=== PATIENT | female | born 1985 | race Hispanic/Latino ===

== ENCOUNTER 2017-12-19 23:02 | Emergency (ER) | payer MEDICARE, MEDICAID ==
[2017-12-19 23:10] VITALS: BMI 18.6
--- NOTE | 2017-12-19 23:13 | ED PDOC ---
Arrival/HPI - General Historian: Patient, EMS - General Time Seen by Provider: 12/19/17 23:09 - History of Present Illness Narrative History of Present Illness (Text): 12/19/17 23:13 32 y/o female, no significant pmh, psychiatric history including schizophrenia/ borderline personality disorder (father has multiple discharge papers from [facility]) , biba c/o agitation/refusing to take her medication/running on the street tonight with no clothings on except a blanket wrapping around her which the dad call the ambulance. Father is here at the ER saying that the patient is flight risk, refused to take medication, no head or neck trauma. Pt. is here at the ER which she declines everything. Pt. has no chest pain or shortness of breath , no palpitation, no rash, no other medical or psychological complaints. (Ambrosio Marks) Past Medical History - Provider Review Nursing Documentation Reviewed: Yes Family/Social History - Physician Review Nursing Documentation Reviewed: Yes Family/Social History: Unknown Family HX Allergies/Home Meds Allergies/Adverse Reactions: Allergies No Known Allergies Allergy (Verified 12/19/17 23:09) Home Medications: Home Meds Medication Instructions Recorded Confirmed Unobtainable 12/19/17 12/19/17 Review of Systems - Review of Systems Constitutional: absent: Fatigue, Fevers Eyes: absent: Vision Changes ENT: absent: Hearing Changes Respiratory: absent: SOB, Cough Gastrointestinal: absent: Abdominal Pain Skin: absent: Rash, Pruritis Neurological: absent: Headache, Dizziness Psychiatric: absent: Anxiety, Depression, Suicidal Ideation Physical Exam Vital Signs Reviewed: Yes Temperature: Afebrile Blood Pressure: Normal Pulse: Tachycardic Respiratory Rate: Normal Appearance: Positive for: Well-Appearing, Non-Toxic, Comfortable Pain Distress: None - Systems Exam Head: Present: Atraumatic, Normocephalic Pupils: Present: PERRL Extroacular Muscles: Present: EOMI Conjunctiva: Present: Normal Mouth: Present: Moist Mucous Membranes Neck: Present: Normal Range of Motion Respiratory/Chest: Present: Clear to Auscultation, Good Air Exchange. No: Respiratory Distress, Accessory Muscle Use Cardiovascular: Present: Regular Rate and Rhythm, Normal S1, S2. No: Murmurs Abdomen: Present: Normal Bowel Sounds. No: Tenderness, Distention, Peritoneal Signs Back: Present: Normal Inspection Upper Extremity: Present: Normal Inspection. No: Cyanosis, Edema Lower Extremity: Present: Normal Inspection. No: Edema Neurological: Present: GCS=15, Speech Normal, Motor Func Grossly Intact, Gait Normal Skin: Present: Warm, Dry, Normal Color. No: Rashes Psychiatric: Present: Alert, Normal Insight, Normal Concentration Vital Signs Temp Pulse Resp BP Pulse Ox 12/20/17 14:31 65 18 116/78 100 12/20/17 12:24 63 18 114/71 100 12/20/17 10:16 65 18 118/69 100 12/20/17 07:17 67 16 116/68 100 12/20/17 05:02 98 H 18 120/82 100 12/19/17 23:02 97.6 F 106 H 18 120/72 100 Medical Decision Making - Lab Interpretations I have reviewed the lab results: Yes - RAD Interpretation Handstitching Machine Collar Feller: Radiologist - EKG Interpretation Interpreted by ED Physician: Yes Type: 12 lead EKG Comparison: No previous EKG avail. ED Course and Treatment: 12/20/17 05:50 Accepted to [facility] for admission. Awaiting bed. Will sign out to ED day team. (Martin Miller) 12/19/17 23:42 -labs/ua/uds -ekg -cxr -PES paged -Observe and reassess 12/20/17 01:21 -EKG: SR @ 82 BPM, no acute ST elevation or depression, no T wave inversion, no previous ekg available for comparison. -Chest xray show no active. -labs show no acute findings -UA show no UTI -UDS show no acute findings -Pt. is medically clear and stable for the psychiatric evaluation at this time. -PES paged and pending for the consult. 12/20/17 02:04 -Case sign off and endorsed to DR. Martin Miller, discussed about the case/labs/ radiology result and he will follow up with the PES consult. (Ambrosio Marks) - Lab Interpretations Lab Results: 12/19/17 23:40 12/19/17 23:40 Lab Results 12/20/17 00:30: Urine Color Yellow, Urine Appearance Clear, Urine pH 7.0, Ur Specific [place] 1.015, Urine Protein Negative, Urine Glucose (UA) Negative, Urine Ketones Negative, Urine Blood Negative, Urine Nitrate Negative, Urine Bilirubin Negative, Urine Urobilinogen 0.2, Ur Leukocyte Esterase Negative 12/19/17 23:50: Urine Opiates Screen Negative, Urine Methadone Screen Negative, Ur Barbiturates Screen Negative, Ur Phencyclidine Scrn Negative, Ur Amphetamines Screen Negative, U Benzodiazepines Scrn Negative, U Oth Cocaine Metabols Negative, U Cannabinoids Screen Negative 12/19/17 23:40: WBC 10.0, RBC 4.43, Hgb 13.4, Hct 38.2, MCV 86.2, MCH 30.2, MCHC 35.1, RDW 12.6, Plt Count 254, MPV 10.3, Gran % 62.6, Lymph % (Auto) 30.0, [place] % (Auto) 6.4 H, Eos % (Auto) 0.8 L, Baso % (Auto) 0.2, Gran # 6.28, Lymph # (Auto) 3.0, [place] # (Auto) 0.6, Eos # (Auto) 0.1, Baso # (Auto) 0.02 12/19/17 23:40: Salicylates < 1 L, Acetaminophen < 10.0 L 12/19/17 23:40: Beta HCG, Quant < 2.39, Alcohol, Quantitative < 10 12/19/17 23:40: Sodium 139, Potassium 3.8, Chloride 103, Carbon Dioxide 27, Anion Gap 12, BUN 10, Creatinine 0.6 L, Est GFR ( Amer) > 60, Est GFR ( Non-Af Amer) > 60, Random Glucose 114 H, Calcium 9.6, Total Bilirubin 0.3, AST 22, ALT 29, Alkaline Phosphatase 43, Total Protein 7.3, Albumin 4.2, Globulin 3.1, Albumin/Globulin Ratio 1.3 - RAD Interpretation Radiology Orders: 12/19/17 23:27 CHEST PORTABLE [RAD] Stat 12/19/17 23:27 CHEST PORTABLE [RAD] Stat no active disease (Ambrosio Marks) - EKG Interpretation EKG Interpretation (Text): 12/20/17 00:19 -EKG: SR @ 82 BPM, no acute ST elevation or depression, no T wave inversion, no previous ekg available for comparison. (Ambrosio Marks) - PA / REPRODUCTION ARTIST / Resident Statement MD/DO has reviewed & agrees with the documentation as recorded. Disposition/Present on Arrival - Present on Arrival Any Indicators Present on Arrival: No History of DVT/PE: No History of Uncontrolled Diabetes: No Urinary Catheter: No History of Decub. Ulcer: No - Disposition Have Diagnosis and Disposition been Completed?: Yes Disposition Time: : - Disposition Diagnosis: Schizophrenia Patient Problems: Current Active Problems Problem Status Onset Schizophrenia Acute Condition: GOOD Forms: [facility] [employer] (Gambian)
[2017-12-19 23:56] LABS: BASO # 0.02 K/mm3 (0.0-2.0); BASO % 0.2 % (0.0-3.0); EOS # 0.1 (0.0-0.7); EOS % 0.8 % (1.5-5.0); GRAN # 6.28 (1.4-6.5); GRAN % 62.6 % (50.0-68.0); HEMOGLOBIN 13.4 g/dL (12.0-16.0); MEAN CELL VOLUME 86.2 fl (80.0-105.0); MEAN CORPUSCULAR HEMOGLOBIN 30.2 pg (25.0-35.0); MEAN CORPUSCULAR HGB CONC 35.1 g/dl (31.0-37.0); MEAN PLATELET VOLUME 10.3 fl (7.0-11.0); MONO # 0.6 (0.1-0.6); MONO % 6.4 % (1.0-6.0); RBC 4.43 10^6/uL (3.5-6.1); RED CELL DISTRIBUTION WIDTH 12.6 % (11.5-14.5)
[2017-12-20 00:14] LABS: ACETAMINOPHEN < 10.0 ug/ml (10.0-20.0); ALB/GLOB RATIO 1.3 (1.1-1.8); ALBUMIN 4.2 g/dL (3.0-4.8); ALT/SGPT 29 U/L (7-56); AST/SGOT 22 U/L (14-36); BLOOD UREA NITROGEN 10 mg/dL (7-21); CALCIUM 9.6 mg/dL (8.4-10.5); GFR AFRICAN-AMERICAN > 60; GFR NON-AFRICAN AMERICAN > 60; SALICYLATE < 1 mg/dL (2.0-20.0)
[2017-12-20 00:20] LABS: BARBITURATES, UR NEGATIVE (NEGATIVE); BENZODIAZEPINES, UR NEGATIVE (NEGATIVE); OPIATES, UR NEGATIVE (NEGATIVE); PHENCYCLIDINE, UR NEGATIVE (NEGATIVE)
[2017-12-20 01:03] LABS: URINE BILIRUBIN NEGATIVE (NEGATIVE); URINE BLOOD NEGATIVE (NEGATIVE); URINE GLUCOSE (UA) NEGATIVE (NEGATIVE); URINE LEUKOCYTE ESTERASE NEGATIVE Leu/uL (NEGATIVE); URINE PROTEIN NEGATIVE mg/dL (<30 mg/dL); URINE UROBILINOGEN 0.2 E.U./dL (<1 E.U./dL)
[2017-12-20 01:15] LABS: URINE APPEARANCE CLEAR (CLEAR); URINE COLOR YELLOW (YELLOW)
--- NOTE | 2017-12-20 09:29 | RAD ---
HISTORY: medical clearance COMPARISON: No prior. FINDINGS: LUNGS: No active pulmonary disease. PLEURA: No significant pleural effusion identified, no pneumothorax apparent. CARDIOVASCULAR: Normal. OSSEOUS STRUCTURES: No significant abnormalities. VISUALIZED UPPER ABDOMEN: Normal. OTHER FINDINGS: None. IMPRESSION: No active disease. Concordant results with the preliminary interpretation rendered by the emergency department physician procedure.
--- NOTE | 2017-12-20 14:01 | ED PDOC ---
Physical Exam Vital Signs Temp Pulse Resp BP Pulse Ox 12/20/17 12:24 63 18 114/71 100 12/20/17 10:16 65 18 118/69 100 12/20/17 07:17 67 16 116/68 100 12/20/17 05:02 98 H 18 120/82 100 12/19/17 23:02 97.6 F 106 H 18 120/72 100 Medical Decision Making ED Course and Treatment: 12/20/17 7:00AM Signed out to me by Dr. Miller, that patient is pending transfer to [facility]. Patient is already accepted and waiting a bed. 12/20/17 14:[address] Patient signed out to Dr. Trinidad that patient is waiting transfer to [facility]. Patient is comfortable with no complaints. - Lab Interpretations Lab Results: 12/19/17 23:40 12/19/17 23:40 Lab Results 12/20/17 00:30: Urine Color Yellow, Urine Appearance Clear, Urine pH 7.0, Ur Specific [place] 1.015, Urine Protein Negative, Urine Glucose (UA) Negative, Urine Ketones Negative, Urine Blood Negative, Urine Nitrate Negative, Urine Bilirubin Negative, Urine Urobilinogen 0.2, Ur Leukocyte Esterase Negative 12/19/17 23:50: Urine Opiates Screen Negative, Urine Methadone Screen Negative, Ur Barbiturates Screen Negative, Ur Phencyclidine Scrn Negative, Ur Amphetamines Screen Negative, U Benzodiazepines Scrn Negative, U Oth Cocaine Metabols Negative, U Cannabinoids Screen Negative 12/19/17 23:40: WBC 10.0, RBC 4.43, Hgb 13.4, Hct 38.2, MCV 86.2, MCH 30.2, MCHC 35.1, RDW 12.6, Plt Count 254, MPV 10.3, Gran % 62.6, Lymph % (Auto) 30.0, [place] % (Auto) 6.4 H, Eos % (Auto) 0.8 L, Baso % (Auto) 0.2, Gran # 6.28, Lymph # (Auto) 3.0, [place] # (Auto) 0.6, Eos # (Auto) 0.1, Baso # (Auto) 0.02 12/19/17 23:40: Salicylates < 1 L, Acetaminophen < 10.0 L 12/19/17 23:40: Beta HCG, Quant < 2.39, Alcohol, Quantitative < 10 12/19/17 23:40: Sodium 139, Potassium 3.8, Chloride 103, Carbon Dioxide 27, Anion Gap 12, BUN 10, Creatinine 0.6 L, Est GFR ( Amer) > 60, Est GFR ( Non-Af Amer) > 60, Random Glucose 114 H, Calcium 9.6, Total Bilirubin 0.3, AST 22, ALT 29, Alkaline Phosphatase 43, Total Protein 7.3, Albumin 4.2, Globulin 3.1, Albumin/Globulin Ratio 1.3 - RAD Interpretation Radiology Orders: 12/19/17 23:27 CHEST PORTABLE [RAD] Stat Disposition/Present on Arrival - Present on Arrival Any Indicators Present on Arrival: No History of DVT/PE: No History of Uncontrolled Diabetes: No Urinary Catheter: No History of Decub. Ulcer: No History Surgical Site Infection Following: None - Disposition Have Diagnosis and Disposition been Completed?: No Diagnosis: Schizophrenia Disposition Time: 14:01 Patient Problems: Current Active Problems Problem Status Onset Schizophrenia Acute Condition: GOOD
--- NOTE | 2017-12-20 14:57 | CARD ---
APPROVED REPORT EKG Measurement Heart [id number] <Conclusion> Sinus rhythm with sinus arrhythmia with short MT Otherwise normal ECG
--- NOTE | 2017-12-21 06:11 | ED PDOC ---
Physical Exam - Physical Exam Narrative Physical Exam (Text): 12/21/17 06:10 pt endorsed pending bed (Jovani Gaitan) Vital Signs Temp Pulse Resp BP Pulse Ox 12/20/17 17:00 68 18 121/74 100 12/20/17 14:31 65 18 116/78 100 12/20/17 12:24 63 18 114/71 100 12/20/17 10:16 65 18 118/69 100 12/20/17 07:17 67 16 116/68 100 12/20/17 05:02 98 H 18 120/82 100 12/19/17 23:02 97.6 F 106 H 18 120/72 100 ED Course and Treatment: 12/21/17 06:10 endorsed pending bed. no complaints. (Jovani Gaitan) - Lab Interpretations Lab Results: 12/19/17 23:40 12/19/17 23:40 Lab Results 12/20/17 00:30: Urine Color Yellow, Urine Appearance Clear, Urine pH 7.0, Ur Specific [place] 1.015, Urine Protein Negative, Urine Glucose (UA) Negative, Urine Ketones Negative, Urine Blood Negative, Urine Nitrate Negative, Urine Bilirubin Negative, Urine Urobilinogen 0.2, Ur Leukocyte Esterase Negative 12/19/17 23:50: Urine Opiates Screen Negative, Urine Methadone Screen Negative, Ur Barbiturates Screen Negative, Ur Phencyclidine Scrn Negative, Ur Amphetamines Screen Negative, U Benzodiazepines Scrn Negative, U Oth Cocaine Metabols Negative, U Cannabinoids Screen Negative 12/19/17 23:40: WBC 10.0, RBC 4.43, Hgb 13.4, Hct 38.2, MCV 86.2, MCH 30.2, MCHC 35.1, RDW 12.6, Plt Count 254, MPV 10.3, Gran % 62.6, Lymph % (Auto) 30.0, [place] % (Auto) 6.4 H, Eos % (Auto) 0.8 L, Baso % (Auto) 0.2, Gran # 6.28, Lymph # (Auto) 3.0, [place] # (Auto) 0.6, Eos # (Auto) 0.1, Baso # (Auto) 0.02 12/19/17 23:40: Salicylates < 1 L, Acetaminophen < 10.0 L 12/19/17 23:40: Beta HCG, Quant < 2.39, Alcohol, Quantitative < 10 12/19/17 23:40: Sodium 139, Potassium 3.8, Chloride 103, Carbon Dioxide 27, Anion Gap 12, BUN 10, Creatinine 0.6 L, Est GFR ( Amer) > 60, Est GFR ( Non-Af Amer) > 60, Random Glucose 114 H, Calcium 9.6, Total Bilirubin 0.3, AST 22, ALT 29, Alkaline Phosphatase 43, Total Protein 7.3, Albumin 4.2, Globulin 3.1, Albumin/Globulin Ratio 1.3 - RAD Interpretation Radiology Orders: 12/19/17 23:27 CHEST PORTABLE [RAD] Stat Disposition/Present on Arrival - Present on Arrival Any Indicators Present on Arrival: No History of DVT/PE: No History of Uncontrolled Diabetes: No Urinary Catheter: No History of Decub. Ulcer: No History Surgical Site Infection Following: None - Disposition Have Diagnosis and Disposition been Completed?: Yes Disposition Time: 07:00 - Disposition Diagnosis: Schizophrenia Patient Problems: Current Active Problems Problem Status Onset Schizophrenia Acute Condition: STABLE Forms: [employer] (Bengali)
--- NOTE | 2017-12-21 07:27 | ED PDOC ---
Physical Exam Vital Signs Reviewed: Yes Vital Signs Temp Pulse Resp BP Pulse Ox 12/21/17 15:17 98 F 63 18 98/52 L 100 12/21/17 10:32 98.1 F 52 L 18 97/52 L 100 12/20/17 17:00 68 18 121/74 100 12/20/17 14:31 65 18 116/78 100 12/20/17 12:24 63 18 114/71 100 12/20/17 10:16 65 18 118/69 100 12/20/17 07:17 67 16 116/68 100 12/20/17 05:02 98 H 18 120/82 100 12/19/17 23:02 97.6 F 106 H 18 120/72 100 Temperature: Afebrile Blood Pressure: Normal Pulse: Tachycardic Respiratory Rate: Normal Appearance: Positive for: Well-Appearing, Non-Toxic, Comfortable Pain Distress: None Mental Status: Positive for: Alert and Oriented X 3 - Systems Exam Head: Present: Atraumatic, Normocephalic Pupils: Present: PERRL Extroacular Muscles: Present: EOMI Conjunctiva: Present: Normal Ears: Present: Normal Mouth: Present: Moist Mucous Membranes Pharnyx: Present: Normal Nose (External): Present: Atraumatic Nose (Internal): Present: Normal Inspection Neck: Present: Normal Range of Motion, Trachea Midline. No: MIDLINE TENDERNESS Respiratory/Chest: Present: Clear to Auscultation, Good Air Exchange. No: Respiratory Distress Cardiovascular: Present: Regular Rate and Rhythm, Normal S1, S2. No: Murmurs Abdomen: Present: Normal Bowel Sounds, Other (well nourished female, no focal tenderness) Back: Present: Normal Inspection. No: Midline Tenderness Upper Extremity: Present: Normal Inspection, Normal ROM, NORMAL PULSES, Neurovascularly Intact, Capillary Refill < 2s Lower Extremity: Present: Normal Inspection, NORMAL PULSES, Normal ROM, Neurovascularly Intact, Capillary Refill < 2 s Neurological: Present: GCS=15, CN II-XII Intact, Speech Normal Skin: Present: Warm, Normal Color Psychiatric: Present: Alert, Oriented x 3 Medical Decision Making ED Course and Treatment: 12/21/17 07:26: Patient endorsed to me by Dr. Gaitan. Patient is medically cleared with no remaining medical complaints. Patient awaiting bed placement at [facility] for psych mgt/txt. 12/21/17 12:07: Patient has been doing well and cooperating. Patient remains in her room. Patient is not in any medical distress. Patient awaiting transfer to [facility], currently without any bed assignment. 12/21/17 19:22 Pt remains in her examin room pt is doing well currently pt is endorsed to Dr Pete, overnight ED attending, pt is pending [facility] bed placement Re-evaluation Time: 19:23 Reassessment Condition: Unchanged - Lab Interpretations Lab Results: 12/19/17 23:40 12/19/17 23:40 Lab Results 12/20/17 00:30: Urine Color Yellow, Urine Appearance Clear, Urine pH 7.0, Ur Specific [place] 1.015, Urine Protein Negative, Urine Glucose (UA) Negative, Urine Ketones Negative, Urine Blood Negative, Urine Nitrate Negative, Urine Bilirubin Negative, Urine Urobilinogen 0.2, Ur Leukocyte Esterase Negative 12/19/17 23:50: Urine Opiates Screen Negative, Urine Methadone Screen Negative, Ur Barbiturates Screen Negative, Ur Phencyclidine Scrn Negative, Ur Amphetamines Screen Negative, U Benzodiazepines Scrn Negative, U Oth Cocaine Metabols Negative, U Cannabinoids Screen Negative 12/19/17 23:40: WBC 10.0, RBC 4.43, Hgb 13.4, Hct 38.2, MCV 86.2, MCH 30.2, MCHC 35.1, RDW 12.6, Plt Count 254, MPV 10.3, Gran % 62.6, Lymph % (Auto) 30.0, [place] % (Auto) 6.4 H, Eos % (Auto) 0.8 L, Baso % (Auto) 0.2, Gran # 6.28, Lymph # (Auto) 3.0, [place] # (Auto) 0.6, Eos # (Auto) 0.1, Baso # (Auto) 0.02 12/19/17 23:40: Salicylates < 1 L, Acetaminophen < 10.0 L 12/19/17 23:40: Beta HCG, Quant < 2.39, Alcohol, Quantitative < 10 12/19/17 23:40: Sodium 139, Potassium 3.8, Chloride 103, Carbon Dioxide 27, Anion Gap 12, BUN 10, Creatinine 0.6 L, Est GFR ( Amer) > 60, Est GFR ( Non-Af Amer) > 60, Random Glucose 114 H, Calcium 9.6, Total Bilirubin 0.3, AST 22, ALT 29, Alkaline Phosphatase 43, Total Protein 7.3, Albumin 4.2, Globulin 3.1, Albumin/Globulin Ratio 1.3 I have reviewed the lab results: Yes Interpretation: All labs normal - RAD Interpretation Radiology Orders: 12/19/17 23:27 CHEST PORTABLE [RAD] Stat - Medication Orders Current Medication Orders: Lorazepam (Ativan) 0.5 mg PO TID PRN; Protocol PRN Reason: anxiety/agitation Ziprasidone (Geodon Cap) 20 mg PO BID PRN; Protocol PRN Reason: agitation/psychosis Ziprasidone (Geodon Inj) 20 mg IM Q8H PRN; Protocol PRN Reason: severe agitaiton/psychosis - Transfer of Care Patient signed out to Dr:: Yanci Other: pending bed assignment at [facility] - Scribe Statement The provider has reviewed the documentation as recorded by the Angelikaibe Pat Mercado Provider Scribe Attestation: All medical record entries made by the Scribe were at my direction and personally dictated by me. I have reviewed the chart and agree that the record accurately reflects my personal performance of the history, physical exam, medical decision making, and the department course for this patient. I have also personally directed, reviewed, and agree with the discharge instructions and disposition. Disposition/Present on Arrival - Present on Arrival Any Indicators Present on Arrival: No History of DVT/PE: No History of Uncontrolled Diabetes: No Urinary Catheter: No History of Decub. Ulcer: No History Surgical Site Infection Following: None - Disposition Have Diagnosis and Disposition been Completed?: Yes Diagnosis: Schizophrenia, Medical clearance for psychiatric admission Disposition Time: 19:25 Patient Problems: Current Active Problems Problem Status Onset Schizophrenia Acute Condition: STABLE Forms: [facility] (Pashto)
--- NOTE | 2017-12-21 21:15 | CON ---
DATE: HISTORY OF PRESENT ILLNESS: The patient is a 32-year-old female with a reported history of schizophrenia, borderline personality disorder, multiple psychiatric admissions in the past, history of chronic noncompliance with the medications. Patient was brought in after EMS was called. Patient was wandering on the street naked, wrapping around herself with blanket only. Patient's father called 911 and patient was brought in. This film writer recommended screening and patient was evaluated by [facility], was accepted for involuntary commitment. Patient is awaiting for transfer to [facility]. This film writer attempted to speak to the patient today, patient deeply sleeping. As per one-to-one sitter, patient had restless night. Patient was not able to relax and right now, she is deeply sleeping. Patient was able to open her eyes, but falling back asleep. No history can be obtained from the patient at present moment. Notes from PS worker reviewed. Patient was acting bizarre in the community. Patient was noncompliant with the medications. Patient has dangerous behavior such as wandering at the nighttime naked on the streets. Patient's father expressed highest concerns about the patient's safety. Patient does not remember what medication she needs to get on while patient was selectively mute. VITAL SIGNS: Stable. Temperature 97.6, pulse is 68, blood pressure 121/74, respirations 18, oxygen saturation is 100. MEDICATIONS: No medications were given. We will add some as needed medications. LABORATORY DATA: Reviewed. MENTAL STATUS EXAMINATION: As this film writer described above, patient was deeply sleeping, was not able to participate in interview. Patient was opening her eyes and falling back asleep. As per sitter, patient was talking to herself, acting bizarre and appears to be psychotic. IMPRESSION: As per history, patient has schizoaffective disorder versus schizophrenia versus bipolar disorder with psychosis. PLAN: Continue current management. Patient is awaiting for bed to be available at [facility]. We will implement p.r.n. medications for anxiety, for insomnia and for psychosis. Patient is not psychiatrically cleared to go back home. Patient will be transferred as soon as bed available at [facility]. Thank you very much for letting me participate in the care of your patient. Angella Watson MD [facility]
--- NOTE | 2017-12-22 06:23 | ED PDOC ---
Physical Exam <Onur Pete - Last Filed: 12/22/17 06:23> <Ryder Foster - Last Filed: 12/22/17 18:40> - Physical Exam Narrative Physical Exam (Text): 12/22/17 14:18 Patient was seen in the emergency department by the psychiatrist , who ordered medication for her agitation. Patient is waiting a committed psychiatric bed. She became hypotensive secondary to medication and an IV with saline has been ordered. 12/22/17 18:38 Care of this patient will be endorsed to the night emergency department physician , waiting for a psychiatric bed [facility]. (Ryder Foster) Vital Signs Temp Pulse Resp BP Pulse Ox 12/22/17 17:34 64 18 98/58 L 98 12/22/17 15:30 98 F 68 18 92/58 L 98 12/22/17 14:30 58 L 18 90/66 L 99 12/22/17 13:30 98 F 62 18 88/50 L 99 12/22/17 12:39 62 18 98/66 L 99 12/22/17 11:30 62 16 106/70 98 12/22/17 10:30 72 18 120/72 99 12/22/17 07:47 98.2 F 68 18 119/78 97 12/22/17 06:53 65 17 101/55 L 100 12/22/17 04:34 70 18 118/74 100 12/22/17 03:14 80 17 104/54 L 99 12/21/17 19:25 98.8 F 68 20 102/60 100 12/21/17 15:17 98 F 63 18 98/52 L 100 12/21/17 10:32 98.1 F 52 L 18 97/52 L 100 12/20/17 17:00 68 18 121/74 100 12/20/17 14:31 65 18 116/78 100 12/20/17 12:24 63 18 114/71 100 12/20/17 10:16 65 18 118/69 100 12/20/17 07:17 67 16 116/68 100 12/20/17 05:02 98 H 18 120/82 100 12/19/17 23:02 97.6 F 106 H 18 120/72 100 Medical Decision Making <Onur Pete - Last Filed: 12/22/17 06:23> <Ryder Foster - Last Filed: 12/22/17 18:40> ED Course and Treatment: 12/21/17 19:22 Case endorsed to me by Dr. Gutiérrez [place] [facility] [place]. 12/22/17 06:23 Case signed out to Dr. Foster pending [place] [facility] [place] bed [place]. (Onur Pete) - Lab Interpretations Lab Results: 12/19/17 23:40 12/19/17 23:40 Lab Results 12/20/17 00:30: Urine Color Yellow, Urine Appearance Clear, Urine pH 7.0, Ur Specific [place] 1.015, Urine Protein Negative, Urine Glucose (UA) Negative, Urine Ketones Negative, Urine Blood Negative, Urine Nitrate Negative, Urine Bilirubin Negative, Urine Urobilinogen 0.2, Ur Leukocyte Esterase Negative 12/19/17 23:50: Urine Opiates Screen Negative, Urine Methadone Screen Negative, Ur Barbiturates Screen Negative, Ur Phencyclidine Scrn Negative, Ur Amphetamines Screen Negative, U Benzodiazepines Scrn Negative, U Oth Cocaine Metabols Negative, U Cannabinoids Screen Negative 12/19/17 23:40: WBC 10.0, RBC 4.43, Hgb 13.4, Hct 38.2, MCV 86.2, MCH 30.2, MCHC 35.1, RDW 12.6, Plt Count 254, MPV 10.3, Gran % 62.6, Lymph % (Auto) 30.0, [place] % (Auto) 6.4 H, Eos % (Auto) 0.8 L, Baso % (Auto) 0.2, Gran # 6.28, Lymph # (Auto) 3.0, [place] # (Auto) 0.6, Eos # (Auto) 0.1, Baso # (Auto) 0.02 12/19/17 23:40: Salicylates < 1 L, Acetaminophen < 10.0 L 12/19/17 23:40: Beta HCG, Quant < 2.39, Alcohol, Quantitative < 10 12/19/17 23:40: Sodium 139, Potassium 3.8, Chloride 103, Carbon Dioxide 27, Anion Gap 12, BUN 10, Creatinine 0.6 L, Est GFR ( Amer) > 60, Est GFR ( Non-Af Amer) > 60, Random Glucose 114 H, Calcium 9.6, Total Bilirubin 0.3, AST 22, ALT 29, Alkaline Phosphatase 43, Total Protein 7.3, Albumin 4.2, Globulin 3.1, Albumin/Globulin Ratio 1.3 - RAD Interpretation Radiology Orders: 12/19/17 23:27 CHEST PORTABLE [RAD] Stat - Medication Orders Current Medication Orders: Lorazepam (Ativan) 0.5 mg PO TID PRN; Protocol PRN Reason: anxiety/agitation Ziprasidone (Geodon Cap) 20 mg PO BID PRN; Protocol PRN Reason: agitation/psychosis Ziprasidone (Geodon Inj) 20 mg IM Q8H PRN; Protocol PRN Reason: severe agitaiton/psychosis Last Admin: 12/22/17 10:35 Dose: 20 mg IM Administration Charges Document 12/22/17 10:35 SZA (Rec: 12/22/17 10:36 CORTEZ [id number]) Injection Site MAR Injection Site Left Deltoid Charges for Administration # of IM Administrations 1 Discontinued Medications Sodium Chloride (Sodium Chloride 0.9%) 1,000 mls @ 500 mls/hr IV ONCE ONE Stop: 12/22/17 15:50 Last Admin: 12/22/17 13:30 Dose: 500 mls/hr eMAR Start Stop Document 12/22/17 13:30 CORTEZ (Rec: 12/22/17 14:39 CORTEZ [id number]) Intravenous Solution Start Date 12/22/17 Start Time 13:30 End Date 12/22/17 End time 15:30 Total Infusion Time 120 Lorazepam (Ativan) 2 mg IM STAT STA PRN Reason: Protocol Stop: 12/22/17 10:33 Last Admin: 12/22/17 10:37 Dose: 2 mg IM Administration Charges Document 12/22/17 10:37 SZA (Rec: 12/22/17 10:37 CORTEZ [id number]) Injection Site MAR Injection Site Right Deltoid Charges for Administration # of IM Administrations 1 Ziprasidone (Geodon Inj) 20 mg IM STAT STA PRN Reason: Protocol Stop: 12/22/17 10:32 Last Admin: 12/22/17 10:37 Dose: Disposition/Present on Arrival - Present on Arrival Any Indicators Present on Arrival: No History of DVT/PE: No History of Uncontrolled Diabetes: No Urinary Catheter: No History of Decub. Ulcer: No History Surgical Site Infection Following: None <Onur Pete - Last Filed: 12/22/17 06:23> - Present on Arrival Any Indicators Present on Arrival: No History of DVT/PE: No History of Uncontrolled Diabetes: No Urinary Catheter: No History of Decub. Ulcer: No - Disposition Have Diagnosis and Disposition been Completed?: Yes Disposition Time: 18:40 Patient Plan: Transfer To <Ryder Foster - Last Filed: 12/22/17 18:40> - Disposition Diagnosis: Schizophrenia, Medical clearance for psychiatric admission Dis[place] [facility] Patient Problems: Current Active Problems Problem Status Onset Medical clearance for psychiatric admission Acute Schizophrenia Acute Condition: STABLE Forms: [employer] (Irish)
[2017-12-22] MEDS ORDERED: Sodium Chloride 0.9% 1,000 ML IV ONE (13:51)
--- NOTE | 2017-12-22 15:37 | PN ---
DATE: FOLLOWUP NOTE SUBJECTIVE: The patient is a 32-year-old female with a reported history either of schizophrenia or schizoaffective disorder. The patient was brought in by EMS after the patient's father called 911 because the patient was running out of the house, naked, covered with only blanket. The patient also presented to be disorganized and was noncompliant with the medication. The patient was offered psych admission yesterday, but the patient declined that offer and the patient was screened by [facility] and at present moment, the patient is awaiting for bed to be available at [facility] for involuntary commitment. This is the second interaction with this patient by this sql report writer. Yesterday, the patient refused to talk to this sql report writer. Today, the patient appears to be sleepy, selectively mute. The patient refused to talk, laying down on her stomach with eyes closed. There is no acute distress. As per one to one, the patient was talking nonsense; a few minutes ago, the patient was talking out loudly about going to house and smashing pumpkins. The patient also said that she will work on recording something in [employer], also the patient reported that all people needs to be dressed up as a doll. The patient presented to be disorganized, but no aggression, no agitation observed. PHYSICAL EXAMINATION VITAL SIGNS: Stable. Temperature 98.2, pulse is 68, blood pressure 119/78, respirations 18. Oxygen saturation of 97. MEDICATIONS: Reviewed. P.r.n. medications were ordered yesterday, but the patient did not require any p.r.n. medications. Labs reviewed, most recently was from the other day. MENTAL STATUS EXAMINATION: As this sql report writer described above, the patient appears to be psychotic. The patient presented to be with some psychomotor retardation, selectively mute, laying down comfortably on her stomach with eyes closed, refused to talk to this sql report writer. The patient obviously psychotic, paranoid and guarded as well as thought process seems to be disorganized. Insight and judgment impaired. Impulses are not predictable. IMPRESSION: As per history, the patient has schizoaffective disorder or schizophrenia spectrum disorder. PLAN At present moment, the patient is waiting for bed to be available at [facility]. The patient is on 1-to-1 assist. This should be continued because of high risk of elopement. P.r.n. medications are in the computer. Family involved. As soon as bed available at [facility], the patient will be transferred. There is no agitation or aggression, but thought process is grossly disorganized. Thank you very much for letting me participate in care of your patient. Should they have any questions, give me a call back. Angella Watson MD [email or web address]
--- NOTE | 2017-12-22 20:20 | ED PDOC ---
Physical Exam - Physical Exam Narrative Physical Exam (Text): 12/22/17 20:20 case endorsed pending bed at [facility] [place]. Vital Signs Temp Pulse Resp BP Pulse Ox 12/23/17 06:14 66 14 94/64 L 98 12/23/17 03:17 60 16 110/60 100 12/23/17 00:50 60 16 100/70 98 12/22/17 22:50 69 14 104/68 98 12/22/17 20:50 62 18 102/52 L 99 12/22/17 18:50 68 18 92/54 L 98 12/22/17 17:34 64 18 98/58 L 98 12/22/17 15:30 98 F 68 18 92/58 L 98 12/22/17 14:30 58 L 18 90/66 L 99 12/22/17 13:30 98 F 62 18 88/50 L 99 12/22/17 12:39 62 18 98/66 L 99 12/22/17 11:30 62 16 106/70 98 12/22/17 10:30 72 18 120/72 99 12/22/17 07:47 98.2 F 68 18 119/78 97 12/22/17 06:53 65 17 101/55 L 100 12/22/17 04:34 70 18 118/74 100 12/22/17 03:14 80 17 104/54 L 99 12/21/17 19:25 98.8 F 68 20 102/60 100 12/21/17 15:17 98 F 63 18 98/52 L 100 12/21/17 10:32 98.1 F 52 L 18 97/52 L 100 12/20/17 17:00 68 18 121/74 100 12/20/17 14:31 65 18 116/78 100 12/20/17 12:24 63 18 114/71 100 12/20/17 10:16 65 18 118/69 100 12/20/17 07:17 67 16 116/68 100 12/20/17 05:02 98 H 18 120/82 100 12/19/17 23:02 97.6 F 106 H 18 120/72 100 Medical Decision Making ED Course and Treatment: 12/22/17 20:20 pt in nad. 12/23/17 06:33 pt resting comfortably through ed stay. pending [facility] bed. - Lab Interpretations Lab Results: 12/19/17 23:40 12/19/17 23:40 Lab Results 12/20/17 00:30: Urine Color Yellow, Urine Appearance Clear, Urine pH 7.0, Ur Specific [place] 1.015, Urine Protein Negative, Urine Glucose (UA) Negative, Urine Ketones Negative, Urine Blood Negative, Urine Nitrate Negative, Urine Bilirubin Negative, Urine Urobilinogen 0.2, Ur Leukocyte Esterase Negative 12/19/17 23:50: Urine Opiates Screen Negative, Urine Methadone Screen Negative, Ur Barbiturates Screen Negative, Ur Phencyclidine Scrn Negative, Ur Amphetamines Screen Negative, U Benzodiazepines Scrn Negative, U Oth Cocaine Metabols Negative, U Cannabinoids Screen Negative 12/19/17 23:40: WBC 10.0, RBC 4.43, Hgb 13.4, Hct 38.2, MCV 86.2, MCH 30.2, MCHC 35.1, RDW 12.6, Plt Count 254, MPV 10.3, Gran % 62.6, Lymph % (Auto) 30.0, [place] % (Auto) 6.4 H, Eos % (Auto) 0.8 L, Baso % (Auto) 0.2, Gran # 6.28, Lymph # (Auto) 3.0, [place] # (Auto) 0.6, Eos # (Auto) 0.1, Baso # (Auto) 0.02 12/19/17 23:40: Salicylates < 1 L, Acetaminophen < 10.0 L 12/19/17 23:40: Beta HCG, Quant < 2.39, Alcohol, Quantitative < 10 12/19/17 23:40: Sodium 139, Potassium 3.8, Chloride 103, Carbon Dioxide 27, Anion Gap 12, BUN 10, Creatinine 0.6 L, Est GFR ( Amer) > 60, Est GFR ( Non-Af Amer) > 60, Random Glucose 114 H, Calcium 9.6, Total Bilirubin 0.3, AST 22, ALT 29, Alkaline Phosphatase 43, Total Protein 7.3, Albumin 4.2, Globulin 3.1, Albumin/Globulin Ratio 1.3 - RAD Interpretation Radiology Orders: 12/19/17 23:27 CHEST PORTABLE [RAD] Stat - Medication Orders Current Medication Orders: Lorazepam (Ativan) 0.5 mg PO TID PRN; Protocol PRN Reason: anxiety/agitation Ziprasidone (Geodon Cap) 20 mg PO BID PRN; Protocol PRN Reason: agitation/psychosis Ziprasidone (Geodon Inj) 20 mg IM Q8H PRN; Protocol PRN Reason: severe agitaiton/psychosis Last Admin: 12/22/17 10:35 Dose: 20 mg IM Administration Charges Document 12/22/17 10:35 CORTEZ (Rec: 12/22/17 10:36 CORTEZ [id number]) Injection Site MAR Injection Site Left Deltoid Charges for Administration # of IM Administrations 1 Discontinued Medications Sodium Chloride (Sodium Chloride 0.9%) 1,000 mls @ 500 mls/hr IV ONCE ONE Stop: 12/22/17 15:50 Last Admin: 12/22/17 13:30 Dose: 500 mls/hr eMAR Start Stop Document 12/22/17 13:30 CORTEZ (Rec: 12/22/17 14:39 CORTEZ [id number]) Intravenous Solution Start Date 12/22/17 Start Time 13:30 End Date 12/22/17 End time 15:30 Total Infusion Time 120 Lorazepam (Ativan) 2 mg IM STAT STA PRN Reason: Protocol Stop: 12/22/17 10:33 Last Admin: 12/22/17 10:37 Dose: 2 mg IM Administration Charges Document 12/22/17 10:37 CORTEZ (Rec: 12/22/17 10:37 CORTEZ [id number]) Injection Site MAR Injection Site Right Deltoid Charges for Administration # of IM Administrations 1 Ziprasidone (Geodon Inj) 20 mg IM STAT STA PRN Reason: Protocol Stop: 12/22/17 10:32 Last Admin: 12/22/17 10:37 Dose: Disposition/Present on Arrival - Present on Arrival Any Indicators Present on Arrival: No History of DVT/PE: No History of Uncontrolled Diabetes: No Urinary Catheter: No History of Decub. Ulcer: No History Surgical Site Infection Following: None - Disposition Have Diagnosis and Disposition been Completed?: Yes Diagnosis: Schizophrenia, Medical clearance for psychiatric admission Disposition: Transfer [facility] Disposition Time: 07:00 Condition: STABLE Forms: [employer] (Scottish)
--- NOTE | 2017-12-23 07:31 | ED PDOC ---
Physical Exam Vital Signs Temp Pulse Resp BP Pulse Ox 12/23/17 12:26 85 21 112/56 L 99 12/23/17 08:09 62 16 110/70 99 12/23/17 06:14 66 14 94/64 L 98 12/23/17 03:17 60 16 110/60 100 12/23/17 00:50 60 16 100/70 98 12/22/17 22:50 69 14 104/68 98 12/22/17 20:50 62 18 102/52 L 99 12/22/17 18:50 68 18 92/54 L 98 12/22/17 17:34 64 18 98/58 L 98 12/22/17 15:30 98 F 68 18 92/58 L 98 12/22/17 14:30 58 L 18 90/66 L 99 12/22/17 13:30 98 F 62 18 88/50 L 99 12/22/17 12:39 62 18 98/66 L 99 12/22/17 11:30 62 16 106/70 98 12/22/17 10:30 72 18 120/72 99 12/22/17 07:47 98.2 F 68 18 119/78 97 12/22/17 07:30 64 18 112/70 98 12/22/17 06:53 65 17 101/55 L 100 12/22/17 04:34 70 18 118/74 100 12/22/17 03:14 80 17 104/54 L 99 12/21/17 19:25 98.8 F 68 20 102/60 100 12/21/17 15:17 98 F 63 18 98/52 L 100 12/21/17 10:32 98.1 F 52 L 18 97/52 L 100 12/20/17 17:00 68 18 121/74 100 12/20/17 14:31 65 18 116/78 100 12/20/17 12:24 63 18 114/71 100 12/20/17 10:16 65 18 118/69 100 12/20/17 07:17 67 16 116/68 100 12/20/17 05:02 98 H 18 120/82 100 12/19/17 23:02 97.6 F 106 H 18 120/72 100 Medical Decision Making ED Course and Treatment: 12/23/17 07:07 Patient transferred [facility] [place] [facility] Gaitan. Patient awaiting transfer to [facility] Psychiatry. 12/23/17 19:17 Patient comfortable. No complaints. Patient signed out to Dr. Gaitan to f/u [facility] transfer. - Lab Interpretations Lab Results: 12/19/17 23:40 12/19/17 23:40 Lab Results 12/20/17 00:30: Urine Color Yellow, Urine Appearance Clear, Urine pH 7.0, Ur Specific [place] 1.015, Urine Protein Negative, Urine Glucose (UA) Negative, Urine Ketones Negative, Urine Blood Negative, Urine Nitrate Negative, Urine Bilirubin Negative, Urine Urobilinogen 0.2, Ur Leukocyte Esterase Negative 12/19/17 23:50: Urine Opiates Screen Negative, Urine Methadone Screen Negative, Ur Barbiturates Screen Negative, Ur Phencyclidine Scrn Negative, Ur Amphetamines Screen Negative, U Benzodiazepines Scrn Negative, U Oth Cocaine Metabols Negative, U Cannabinoids Screen Negative 12/19/17 23:40: WBC 10.0, RBC 4.43, Hgb 13.4, Hct 38.2, MCV 86.2, MCH 30.2, MCHC 35.1, RDW 12.6, Plt Count 254, MPV 10.3, Gran % 62.6, Lymph % (Auto) 30.0, [place] % (Auto) 6.4 H, Eos % (Auto) 0.8 L, Baso % (Auto) 0.2, Gran # 6.28, Lymph # (Auto) 3.0, [place] # (Auto) 0.6, Eos # (Auto) 0.1, Baso # (Auto) 0.02 12/19/17 23:40: Salicylates < 1 L, Acetaminophen < 10.0 L 12/19/17 23:40: Beta HCG, Quant < 2.39, Alcohol, Quantitative < 10 12/19/17 23:40: Sodium 139, Potassium 3.8, Chloride 103, Carbon Dioxide 27, Anion Gap 12, BUN 10, Creatinine 0.6 L, Est GFR ( Amer) > 60, Est GFR ( Non-Af Amer) > 60, Random Glucose 114 H, Calcium 9.6, Total Bilirubin 0.3, AST 22, ALT 29, Alkaline Phosphatase 43, Total Protein 7.3, Albumin 4.2, Globulin 3.1, Albumin/Globulin Ratio 1.3 - RAD Interpretation Radiology Orders: 12/19/17 23:27 CHEST PORTABLE [RAD] Stat - Medication Orders Current Medication Orders: Lorazepam (Ativan) 0.5 mg PO TID PRN; Protocol PRN Reason: anxiety/agitation Lorazepam (Ativan) 1 mg PO HS NASEEM PRN Reason: Protocol Lorazepam (Ativan) 0.5 mg PO DAILY NASEEM PRN Reason: Protocol Last Admin: 12/23/17 10:48 Dose: Not Given Non-Admin Reason: Patient Refused Risperidone (Risperdal Tab) 1 mg PO AMHS NASEEM PRN Reason: Protocol Last Admin: 12/23/17 10:48 Dose: Not Given Non-Admin Reason: Patient Refused Ziprasidone (Geodon Cap) 20 mg PO BID PRN; Protocol PRN Reason: agitation/psychosis Ziprasidone (Geodon Inj) 20 mg IM Q8H PRN; Protocol PRN Reason: severe agitaiton/psychosis Last Admin: 12/22/17 10:35 Dose: 20 mg IM Administration Charges Document 12/22/17 10:35 CORTEZ (Rec: 12/22/17 10:36 CORTEZ [id number]) Injection Site MAR Injection Site Left Deltoid Charges for Administration # of IM Administrations 1 Discontinued Medications Sodium Chloride (Sodium Chloride 0.9%) 1,000 mls @ 500 mls/hr IV ONCE ONE Stop: 12/22/17 15:50 Last Admin: 12/22/17 13:30 Dose: 500 mls/hr eMAR Start Stop Document 12/22/17 13:30 CORTEZ (Rec: 12/22/17 14:39 CORTEZ [id number]) Intravenous Solution Start Date 12/22/17 Start Time 13:30 End Date 12/22/17 End time 15:30 Total Infusion Time 120 Lorazepam (Ativan) 2 mg IM STAT STA PRN Reason: Protocol Stop: 12/22/17 10:33 Last Admin: 12/22/17 10:37 Dose: 2 mg IM Administration Charges Document 12/22/17 10:37 CORTEZ (Rec: 12/22/17 10:37 CORTEZ [id number]) Injection Site MAR Injection Site Right Deltoid Charges for Administration # of IM Administrations 1 Ziprasidone (Geodon Inj) 20 mg IM STAT STA PRN Reason: Protocol Stop: 12/22/17 10:32 Last Admin: 12/22/17 10:37 Dose: - Scribe Statement The provider has reviewed the documentation as recorded by the Amelia Phillips Provider Scribe Attestation: All medical record entries made by the Scribe were at my direction and personally dictated by me. I have reviewed the chart and agree that the record accurately reflects my personal performance of the history, physical exam, medical decision making, and the department course for this patient. I have also personally directed, reviewed, and agree with the discharge instructions and disposition. Disposition/Present on Arrival - Present on Arrival Any Indicators Present on Arrival: No History of DVT/PE: No History of Uncontrolled Diabetes: No Urinary Catheter: No History of Decub. Ulcer: No History Surgical Site Infection Following: None - Disposition Have Diagnosis and Disposition been Completed?: Yes Diagnosis: Schizophrenia, Medical clearance for psychiatric admission Disposition: Transfer [facility] Disposition Time: 19:17 Patient Plan: Observation Condition: STABLE Forms: [employer] (Sudanese)
--- NOTE | 2017-12-23 22:36 | ED PDOC ---
Physical Exam Vital Signs Temp Pulse Resp BP Pulse Ox 12/23/17 12:26 85 21 112/56 L 99 12/23/17 08:09 62 16 110/70 99 12/23/17 06:14 66 14 94/64 L 98 12/23/17 03:17 60 16 110/60 100 12/23/17 00:50 60 16 100/70 98 12/22/17 22:50 69 14 104/68 98 12/22/17 20:50 62 18 102/52 L 99 12/22/17 18:50 68 18 92/54 L 98 12/22/17 17:34 64 18 98/58 L 98 12/22/17 15:30 98 F 68 18 92/58 L 98 12/22/17 14:30 58 L 18 90/66 L 99 12/22/17 13:30 98 F 62 18 88/50 L 99 12/22/17 12:39 62 18 98/66 L 99 12/22/17 11:30 62 16 106/70 98 12/22/17 10:30 72 18 120/72 99 12/22/17 07:47 98.2 F 68 18 119/78 97 12/22/17 07:30 64 18 112/70 98 12/22/17 06:53 65 17 101/55 L 100 12/22/17 04:34 70 18 118/74 100 12/22/17 03:14 80 17 104/54 L 99 12/21/17 19:25 98.8 F 68 20 102/60 100 12/21/17 15:17 98 F 63 18 98/52 L 100 12/21/17 10:32 98.1 F 52 L 18 97/52 L 100 12/20/17 17:00 68 18 121/74 100 12/20/17 14:31 65 18 116/78 100 12/20/17 12:24 63 18 114/71 100 12/20/17 10:16 65 18 118/69 100 12/20/17 07:17 67 16 116/68 100 12/20/17 05:02 98 H 18 120/82 100 12/19/17 23:02 97.6 F 106 H 18 120/72 100 Medical Decision Making ED Course and Treatment: 12/23/17 19:00 Case endorsed to me by Dr. Rosa, pending [facility] transfer. 12/24/17 03:10 transport team arrived. pt in nad. - Lab Interpretations Lab Results: 12/19/17 23:40 12/19/17 23:40 Lab Results 12/20/17 00:30: Urine Color Yellow, Urine Appearance Clear, Urine pH 7.0, Ur Specific [place] 1.015, Urine Protein Negative, Urine Glucose (UA) Negative, Urine Ketones Negative, Urine Blood Negative, Urine Nitrate Negative, Urine Bilirubin Negative, Urine Urobilinogen 0.2, Ur Leukocyte Esterase Negative 12/19/17 23:50: Urine Opiates Screen Negative, Urine Methadone Screen Negative, Ur Barbiturates Screen Negative, Ur Phencyclidine Scrn Negative, Ur Amphetamines Screen Negative, U Benzodiazepines Scrn Negative, U Oth Cocaine Metabols Negative, U Cannabinoids Screen Negative 12/19/17 23:40: WBC 10.0, RBC 4.43, Hgb 13.4, Hct 38.2, MCV 86.2, MCH 30.2, MCHC 35.1, RDW 12.6, Plt Count 254, MPV 10.3, Gran % 62.6, Lymph % (Auto) 30.0, [place] % (Auto) 6.4 H, Eos % (Auto) 0.8 L, Baso % (Auto) 0.2, Gran # 6.28, Lymph # (Auto) 3.0, [place] # (Auto) 0.6, Eos # (Auto) 0.1, Baso # (Auto) 0.02 12/19/17 23:40: Salicylates < 1 L, Acetaminophen < 10.0 L 12/19/17 23:40: Beta HCG, Quant < 2.39, Alcohol, Quantitative < 10 12/19/17 23:40: Sodium 139, Potassium 3.8, Chloride 103, Carbon Dioxide 27, Anion Gap 12, BUN 10, Creatinine 0.6 L, Est GFR ( Amer) > 60, Est GFR ( Non-Af Amer) > 60, Random Glucose 114 H, Calcium 9.6, Total Bilirubin 0.3, AST 22, ALT 29, Alkaline Phosphatase 43, Total Protein 7.3, Albumin 4.2, Globulin 3.1, Albumin/Globulin Ratio 1.3 - RAD Interpretation Radiology Orders: 12/19/17 23:27 CHEST PORTABLE [RAD] Stat - Medication Orders Current Medication Orders: Lorazepam (Ativan) 0.5 mg PO TID PRN; Protocol PRN Reason: anxiety/agitation Lorazepam (Ativan) 1 mg PO HS NASEEM PRN Reason: Protocol Lorazepam (Ativan) 0.5 mg PO DAILY NASEEM PRN Reason: Protocol Last Admin: 12/23/17 10:48 Dose: Not Given Non-Admin Reason: Patient Refused Risperidone (Risperdal Tab) 1 mg PO AMHS NASEEM PRN Reason: Protocol Last Admin: 12/23/17 10:48 Dose: Not Given Non-Admin Reason: Patient Refused Ziprasidone (Geodon Cap) 20 mg PO BID PRN; Protocol PRN Reason: agitation/psychosis Ziprasidone (Geodon Inj) 20 mg IM Q8H PRN; Protocol PRN Reason: severe agitaiton/psychosis Last Admin: 12/22/17 10:35 Dose: 20 mg IM Administration Charges Document 12/22/17 10:35 CORTEZ (Rec: 12/22/17 10:36 CORTEZ [id number]) Injection Site MAR Injection Site Left Deltoid Charges for Administration # of IM Administrations 1 Discontinued Medications Sodium Chloride (Sodium Chloride 0.9%) 1,000 mls @ 500 mls/hr IV ONCE ONE Stop: 12/22/17 15:50 Last Admin: 12/22/17 13:30 Dose: 500 mls/hr eMAR Start Stop Document 12/22/17 13:30 CHERELLEA (Rec: 12/22/17 14:39 CORTEZ [id number]) Intravenous Solution Start Date 12/22/17 Start Time 13:30 End Date 12/22/17 End time 15:30 Total Infusion Time 120 Lorazepam (Ativan) 2 mg IM STAT STA PRN Reason: Protocol Stop: 12/22/17 10:33 Last Admin: 12/22/17 10:37 Dose: 2 mg IM Administration Charges Document 12/22/17 10:37 CORTEZ (Rec: 12/22/17 10:37 CORTEZ [id number]) Injection Site MAR Injection Site Right Deltoid Charges for Administration # of IM Administrations 1 Ziprasidone (Geodon Inj) 20 mg IM STAT STA PRN Reason: Protocol Stop: 12/22/17 10:32 Last Admin: 12/22/17 10:37 Dose: Disposition/Present on Arrival - Present on Arrival Any Indicators Present on Arrival: No History of DVT/PE: No History of Uncontrolled Diabetes: No Urinary Catheter: No History of Decub. Ulcer: No History Surgical Site Infection Following: None - Disposition Have Diagnosis and Disposition been Completed?: Yes Diagnosis: Schizophrenia, Medical clearance for psychiatric admission Disposition: Transfer [facility] Disposition Time: 01:00 Condition: STABLE Forms: [employer] (German)
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
[2017-12-24 02:38] VITALS: BP 127/57; PULSE 65; RESP 18; TEMP 98.2; O2SAT 100
== END 2017-12-24 00:50 | disposition short-term general hospital (02) ==
LOC: ED 23:02
DX: Z00.8 Encounter for other general examination (principal); F20.9 Schizophrenia, unspecified
CPT/HCPCS: 71045; 80053; 81003; 84702; 85025; 93005; 96360; 96361; 96372; 99285; G0480; J2060; J3486; J7040